=== PATIENT | male | born 1985 | race African-American/Black ===

== ENCOUNTER 2016-07-01 01:31 | Emergency (ER) | payer SELFPAY ==
[~2016-07-01 01:31] MED LIST: Naloxone 2 MG/2 ML Syringe ONE
[2016-07-01] MEDS ORDERED: Sodium Chloride 0.9% 10 ML Syringe FLUSH PRN (01:38)
[2016-07-01 01:54] VITALS: BP 130/91
--- NOTE | 2016-07-01 02:57 | EDM.PDOC ---
ED HPI ALTERED MENTAL STATUS - General Chief Complaint: Drug or Alcohol Abuse Stated Complaint: OVERDOSE Time Seen by Provider: 07/01/16 01:37 Source of Information: Reports: Other (friend) - History of Present Illness INITIAL COMMENTS - FREE TEXT/NARRATIVE: 30-year-old male brought in for altered mental status, agonal breathing, presumed heroin overdose. The friend that brought him in admits that he did inject heroin a short time prior and then "passed out and quit breathing normally. 2 Friends actually brought him in one driving and the other doing CPR. On arrival patient was quickly placed on a clot. Medical alert was called. When I arrived to the room he's lying on a clot agonal respirations unresponsive to voice or pain. No other information available at that time. - Related Data Allergies/ADRs: Allergies No Known Allergies Allergy (Verified 07/01/16 01:43) Home Meds: Home Meds . [No Known Home Meds] 07/01/16 [History] Past Medical History - Past Health History Medical/Surgical History: Denies Medical/Surgical History Psychiatric History: Reports: Addiction Social & Family History - Tobacco Use Smoking Status *Q: Current Every Day Smoker Years of Tobacco use: 10 Packs/Tins Daily: 0.3 - Recreational Drug Use Recreational Drug Use: Yes Recreational Drug Type: Reports: Heroin Recreational Drug Use Frequency: Socially ED ROS GENERAL - Review of Systems Review Of Systems: Unable To Obtain (do to altered mental status) - Physical Exam Exam: See Below General Appearance: obtunded, other (unresponsive to voice or painful stimuli) Eye Exam: bilateral eye: other (pupils are constricted bilaterally) Throat/Mouth: Normal inspection, Normal oropharynx Head Exam: atraumatic. No: facial swelling Neck: other (no JVD) Respiratory/Chest: other (agonal respirations). No: rhonchi, wheezing, stridor Cardiovascular: tachycardia, other (good radial pulses palpable) Neuro Exam (Abbreviated): unresponsive (unresponsive to voice or painful stimuli ) Extremities: other (he does have some track conley bilateral antecubital) Skin Exam: Other (dusky) Course - Vital Signs Last Recorded V/S: Last Vital Signs Temp 96.2 F 07/01/16 01:44 Pulse 127 H 07/01/16 01:44 Resp 0 L 07/01/16 01:44 BP 130/91 H 07/01/16 01:44 Pulse Ox 97 07/01/16 03:33 - Orders/Labs/Meds Orders: Active Orders 24 hr Category Date Time Status EKG 12 Lead [EKG Documentation Completion] [RC] STAT Care 07/01/16 01:45 Active Oxygen Therapy [RC] ASDIRECTED Care 07/01/16 01:38 Active Peripheral IV Care [RC] . DIRECTED Care 07/01/16 01:38 Active RT Aerosol Therapy [RC] ASDIRECTED Care 07/01/16 03:20 Active Chest 1V Frontal [CR] Stat Exams 07/01/16 01:39 Taken Peripheral IV Insertion Adult [OM.PC] Stat Oth 07/01/16 01:38 Ordered Labs: Laboratory Tests 07/01/16 07/01/16 Range/Units 01:41 01:41 WBC 12.53 H (4.23-9.07) K/mm3 RBC 5.27 (4.63-6.08) M/mm3 Hgb 15.3 (13.7-17.5) gm/L Hct 46.9 (40.1-51.0) % MCV 89.0 (79.0-92.2) fl MCH 29.0 (25.7-32.2) pg MCHC 32.6 (32.2-35.5) g/dl RDW Std Deviation 44.2 H (35.1-43.9) fL Plt Count 257 (163-337) K/mm3 MPV 10.5 (9.4-12.3) fl Neut % (Auto) 48.2 (34.0-67.9) % Lymph % (Auto) 44.4 (21.8-53.1) % [place] % (Auto) 5.9 (5.3-12.2) % Eos % (Auto) 0.6 L (0.8-7.0) Baso % (Auto) 0.6 (0.1-1.2) % Neut # 6.04 H (1.78-5.38) K/mm3 Lymph # 5.56 H (1.32-3.57) K/mm3 [place] # 0.74 (0.30-0.82) K/mm3 Eos # 0.07 (0.04-0.54) K/mm3 Baso # 0.08 (0.01-0.08) K/mm3 Manual Slide Review Abnormal smear Sodium 140 (136-145) mEq/L Potassium 3.8 (3.5-5.1) mEq/L Chloride 104 (98-107) mEq/L Carbon Dioxide 23 (21-32) mEq/L Anion Gap 16.8 H (5-15) BUN 18 (7-18) mg/dL Creatinine 1.3 (0.7-1.3) mg/dL Est Cr Clr Drug Dosing 82.33 mL/min Estimated GFR (MDRD) > 60 (>60) mL/min BUN/Creatinine Ratio 13.8 L (14-18) Glucose 135 H (74-106) mg/dL Calcium 8.8 (8.5-10.1) mg/dL Total Bilirubin 0.3 (0.2-1.0) mg/dL AST 78 H (15-37) U/L ALT 92 H (16-63) U/L Alkaline Phosphatase 62 (46-116) U/L Total Protein 7.5 (6.4-8.2) g/dl Albumin 4.1 (3.4-5.0) g/dl Globulin 3.4 gm/dL Albumin/Globulin Ratio 1.2 (1-2) Ethyl Alcohol 0.06 (0.00) gm% Meds: Medications Discontinued Medications Generic Name Dose Route Start Last Admin Trade Name Freq PRN Reason Stop Dose Admin Albuterol 2.5 mg 07/01/16 03:20 07/01/16 03:31 Proventil Neb Soln NEB 07/01/16 03:21 2.5 mg ONETIME ONE Administration Naloxone HCl 1 mg 07/01/16 01:38 Narcan IVPUSH 07/01/16 01:39 ONETIME ONE Naloxone HCl 1 mg 07/01/16 01:58 Narcan IVPUSH 07/01/16 01:59 ONETIME ONE Naloxone HCl 2 mg 07/01/16 02:03 07/01/16 01:32 Narcan IVPUSH 07/01/16 02:04 2 mg ONETIME ONE Administration Naloxone HCl 2 mg 07/01/16 02:07 07/01/16 01:33 Narcan IVPUSH 07/01/16 02:08 2 mg ONETIME ONE Administration Sodium Chloride 10 ml 07/01/16 01:38 Saline Flush FLUSH ASDIRECTED PRN Keep Vein Open - Re-Assessments/Exams Free Text/Narrative Re-Assessment/Exam: 07/01/16 02:15. Patient came in with agonal respirations. A friend brought him in by private vehicle. He was rapidly placed on a cot, medical alert was called , ventilations were assisted with bag valve mask with O2 at 15 L. IV access was rapidly obtained and he was given 2 mg of Narcan IV. with that his respiratory rate picked up very rapidly to where he was breathing on his own, moving air well with sats at 100% with continued oxygen at 15 L. We did not get an oximetry reading on him initially when he first arrived but with his alternated mental status, slow agonal respirations he was hypoxic on arrival. 3:20 . Patient has been gradually titrated down on his oxygen flow rate and was maintaining sats were 91 92% range then dropped short time ago down to 87-88% room air. We will give him a neb treatment. He states he does have history of asthma. 3:38He currently is not wheezing, moving air well, very occasional nonproductive cough, does not feel short of breath. He feels up to going home. sats are now running in the 98-99% range. A friend or 2 will be with him the remainder of the night. Discharge instructions as documented. critical care time 45 minutes. This includes initial resuscitation, ordering of appropriate tests, monitoring of condition until stable and then continued monitoring of condition until ready for discharge. interpretation of labs. Chart documentation. Departure - Departure Time of Disposition: 20:00 Disposition: Home, Self-Care 01 Condition: fair Clinical Impression: Heroin overdose Qualifiers: Encounter type: initial encounter Injury intent: accidental or unintentional Qualified Code(s): T40.1X1A - Poisoning by heroin, accidental (unintentional), initial encounter Instructions: Opioid Overdose Referrals: PCP,None [Primary Care Provider] - Additional Instructions: you were barely breathing when brought to the ED this morning by her friend. You could have easily from this. Contact [facility] addiction counselor or [facility] services if you are interested in information or help to stop using heroin. Followup clinic as needed return to ED as needed - My Orders Last 24 Hours: My Active Orders 07/01/16 01:38 Oxygen Therapy [RC] ASDIRECTED Peripheral IV Care [RC] . DIRECTED Peripheral IV Insertion Adult [OM.PC] Stat 07/01/16 01:39 Chest 1V Frontal [CR] Stat 07/01/16 01:45 EKG 12 Lead [EKG Documentation Completion] [RC] STAT 07/01/16 03:20 RT Aerosol Therapy [RC] ASDIRECTED - Assessment/Plan Last 24 Hours: My Active Orders 07/01/16 01:38 Oxygen Therapy [RC] ASDIRECTED Peripheral IV Care [RC] . DIRECTED Peripheral IV Insertion Adult [OM.PC] Stat 07/01/16 01:39 Chest 1V Frontal [CR] Stat 07/01/16 01:45 EKG 12 Lead [EKG Documentation Completion] [RC] STAT 07/01/16 03:20 RT Aerosol Therapy [RC] ASDIRECTED
[2016-07-01] MEDS ORDERED: Albuterol 0.083% 2.5 MG/3 ML Neb Soln NEB ONE (03:20)
--- NOTE | 2016-07-01 07:10 | CR ---
Chest: Supine view of the chest was obtained. Comparison: No previous study. Hazy increased density within the right chest as compared to the left side is seen. Mild bronchitis is possible. Lungs otherwise are clear. Heart size and mediastinum are normal. Bony structures are grossly intact. Impression: 1. Haziness to the right chest possibly due to bronchitis. Please correlate if patient has infectious symptoms. 2. Portable chest x-ray is otherwise unremarkable. Diagnostic code #3
== END 2016-07-01 04:00 | disposition home or self-care (01) ==
LOC: JD.ED 01:31 → SUPCPDRO 01:31 → JD.ED 04:00
DX: T40.1X1A Poisoning by heroin, accidental (unintentional), initial encounter (principal); J45.909 Unspecified asthma, uncomplicated; F17.200 Nicotine dependence, unspecified, uncomplicated
CPT/HCPCS: 36415; 71010; 80053; 85025; 93005; 94664; 99285; G0480; J2310; 99291

== ENCOUNTER 2016-09-30 00:01 | Emergency (ER) | payer BC ==
[2016-09-30 00:25] VITALS: BP 122/78
[2016-09-30] MEDS ORDERED: Potassium Chloride 20 MEQ Tab.ER PO ONE (01:39)
--- NOTE | 2016-09-30 03:27 | EDM.PDOC ---
ED HPI GENERAL MEDICAL PROBLEM - General Chief Complaint: Drug or Alcohol Abuse Stated Complaint: [facility] Time Seen by Provider: 09/30/16 00:05 - History of Present Illness INITIAL COMMENTS - FREE TEXT/NARRATIVE: 31-year-old male brought to the emergency room by EMS after an apparent heroin overdose. EMS was activated after the patient was found unresponsive. When EMS arise. Substantially decreased respiratory drive. He was given a milligram of Narcan and awoke and quickly was alert and oriented 3. The patient had a similar episode where his friend brought him to the emergency department 3 months ago and he required 4 mg of Narcan. Patient states he does not use heroin on a regular basis and hadn't used for a couple weeks prior to tonight's episode. Patient denies other medical problems - Related Data Allergies Allergy/AdvReac Type Severity Reaction Status Date / Time No Known Allergies Allergy Verified 07/01/16 01:43 Home Meds: Home Meds . [No Known Home Meds] 07/01/16 [History] Past Medical History - Past Health History Medical/Surgical History: Denies Medical/Surgical History Psychiatric History: Reports: Addiction Social & Family History - Tobacco Use Smoking Status *Q: Never Smoker Years of Tobacco use: 10 Packs/Tins Daily: 0.3 - Recreational Drug Use Recreational Drug Use: Yes Drug Use in Last 12 Months: Yes Recreational Drug Type: Reports: Heroin Recreational Drug Use Frequency: Socially ED ROS GENERAL - Review of Systems Review Of Systems: See Below Constitutional: Reports: No Symptoms HEENT: Reports: No Symptoms Respiratory: Reports: No Symptoms Cardiovascular: Reports: No Symptoms Endocrine: Reports: No Symptoms GI/Abdominal: Reports: No Symptoms : Reports: No Symptoms Neurological: Reports: No Symptoms Psychiatric: Denies: Anxiety, Depression, Hallucinations, Homicidal Ideation, Mood Lability, Suicidal Ideation ED EXAM, GENERAL - Physical Exam Exam: See Below Exam Limited By: No Limitations General Appearance: Alert, No Apparent Distress Eye Exam: Bilateral Eye: Normal Inspection Ears: Normal External Exam, Normal Canal, Hearing Grossly Normal, Normal TMs Nose: Normal Inspection, Normal Mucosa, No Blood Throat/Mouth: Normal Inspection, Normal Lips, Normal Teeth, Normal Gums, Normal Oropharynx, Normal Voice, No Airway Compromise Head: Atraumatic, Normocephalic Neck: Normal Inspection, Supple, Non-Tender, Full Range of Motion Respiratory/Chest: No Respiratory Distress, Lungs Clear, Normal Breath Sounds Cardiovascular: Normal Peripheral Pulses, Regular Rate, Rhythm, No Edema GI/Abdominal: Normal Bowel Sounds, Soft, Non-Tender, No Organomegaly, No Distention, No Abnormal Bruit, No Mass Back Exam: Normal Inspection. No: CVA Tenderness (L), CVA Tenderness (R) Extremities: Normal Inspection, Normal Range of Motion, Non-Tender, No Pedal Edema Neurological: Alert, Oriented, CN II-XII Intact, Normal Cognition, No Motor/ Sensory Deficits Psychiatric: Normal Affect, Normal Mood EKG INTERPRETATION EKG Date: 09/30/16 Rhythm: NSR [place]: Normal P-Wave: Present QRS: Normal ST-T: Normal QT: Normal EKG Interpretation Comments: Normal EKG Course - Vital Signs Last Recorded V/S: Last Vital Signs Temp 36.6 C 09/30/16 00:23 Pulse 74 09/30/16 00:23 Resp 20 09/30/16 00:23 BP 122/78 09/30/16 00:23 Pulse Ox 100 09/30/16 00:23 - Orders/Labs/Meds Orders: Active Orders 24 hr Category Date Time Status EKG Documentation Completion [RC] STAT Care 09/30/16 00:20 Active Labs: Laboratory Tests 09/30/16 09/30/16 09/30/16 Range/Units 00:35 00:35 03:07 WBC 10.01 H (4.23-9.07) K/mm3 RBC 5.25 (4.63-6.08) M/mm3 Hgb 15.6 (13.7-17.5) gm/L Hct 45.8 (40.1-51.0) % MCV 87.2 (79.0-92.2) fl MCH 29.7 (25.7-32.2) pg MCHC 34.1 (32.2-35.5) g/dl RDW Std Deviation 39.3 (35.1-43.9) fL Plt Count 227 (163-337) K/mm3 MPV 11.1 (9.4-12.3) fl Neutrophils % (Manual) 63 H (40-60) % Band Neutrophils % 0 (0-10) % Lymphocytes % (Manual) 26 (20-40) % Atypical Lymphs % 2 % Monocytes % (Manual) 8 (2-10) % Eosinophils % (Manual) 1 (0.8-7.0) % Basophils % (Manual) 0 L (0.2-1.2) Platelet Estimate Adequate Plt Morphology Comment Normal RBC Morph Comment Normal Sodium 141 (136-145) mEq/L Potassium 3.2 L (3.5-5.1) mEq/L Chloride 105 (98-107) mEq/L Carbon Dioxide 26 (21-32) mEq/L Anion Gap 13.2 (5-15) BUN 22 H (7-18) mg/dL Creatinine 1.8 H (0.7-1.3) mg/dL Est Cr Clr Drug Dosing 60.83 mL/min Estimated GFR (MDRD) 53 (>60) mL/min BUN/Creatinine Ratio 12.2 L (14-18) Glucose 118 H (74-106) mg/dL Calcium 9.0 (8.5-10.1) mg/dL Total Bilirubin 0.4 (0.2-1.0) mg/dL AST 24 (15-37) U/L ALT 69 H (16-63) U/L Alkaline Phosphatase 63 (46-116) U/L Total Protein 7.5 (6.4-8.2) g/dl Albumin 4.0 (3.4-5.0) g/dl Globulin 3.5 gm/dL Albumin/Globulin Ratio 1.1 (1-2) Urine Color (Yellow) Urine Appearance (Clear) Urine pH (5.0-8.0) Ur Specific [place] (1.005-1.030) Urine Protein (Negative) Urine Glucose (UA) (Negative) Urine Ketones (Negative) Urine Occult Blood (Negative) Urine Nitrite (Negative) Urine Bilirubin (Negative) Urine Urobilinogen (0.2-1.0) Ur Leukocyte Esterase (Negative) Urine RBC (0-5) /hpf Urine WBC (0-5) /hpf Ur Epithelial Cells (0-5) /hpf Calcium Oxalate Crystal (NONE) Urine Bacteria (FEW) /hpf Hyaline Casts (0-5) /lpf Urine Mucus (FEW) /hpf Urine Opiates Screen Presumptive positive H (NEGATIVE) Ur Buprenorphine Scrn Negative (NEGATIVE) Ur Oxycodone Screen Negative (NEGATIVE) Urine Methadone Screen Negative (NEGATIVE) Ur Propoxyphene Screen Negative (NEGATIVE) Ur Barbiturates Screen Negative (NEGATIVE) Ur Tricyclics Screen Negative (NEGATIVE) Ur Phencyclidine Scrn Negative (NEGATIVE) Ur Amphetamine Screen Negative (NEGATIVE) U Methamphetamines Scrn Negative (NEGATIVE) U Benzodiazepines Scrn Negative (NEGATIVE) U Cocaine Metab Screen Presumptive positive H (NEGATIVE) U Marijuana (THC) Screen Presumptive positive H (NEGATIVE) Ethyl Alcohol 0.00 (0.00) gm% 09/30/16 Range/Units 03:07 WBC (4.23-9.07) K/mm3 RBC (4.63-6.08) M/mm3 Hgb (13.7-17.5) gm/L Hct (40.1-51.0) % MCV (79.0-92.2) fl MCH (25.7-32.2) pg MCHC (32.2-35.5) g/dl RDW Std Deviation (35.1-43.9) fL Plt Count (163-337) K/mm3 MPV (9.4-12.3) fl Neutrophils % (Manual) (40-60) % Band Neutrophils % (0-10) % Lymphocytes % (Manual) (20-40) % Atypical Lymphs % % Monocytes % (Manual) (2-10) % Eosinophils % (Manual) (0.8-7.0) % Basophils % (Manual) (0.2-1.2) Platelet Estimate Plt Morphology Comment RBC Morph Comment Sodium (136-145) mEq/L Potassium (3.5-5.1) mEq/L Chloride (98-107) mEq/L Carbon Dioxide (21-32) mEq/L Anion Gap (5-15) BUN (7-18) mg/dL Creatinine (0.7-1.3) mg/dL Est Cr Clr Drug Dosing mL/min Estimated GFR (MDRD) (>60) mL/min BUN/Creatinine Ratio (14-18) Glucose (74-106) mg/dL Calcium (8.5-10.1) mg/dL Total Bilirubin (0.2-1.0) mg/dL AST (15-37) U/L ALT (16-63) U/L Alkaline Phosphatase (46-116) U/L Total Protein (6.4-8.2) g/dl Albumin (3.4-5.0) g/dl Globulin gm/dL Albumin/Globulin Ratio (1-2) Urine Color Yellow (Yellow) Urine Appearance Clear (Clear) Urine pH 6.0 (5.0-8.0) Ur Specific [place] > or = 1.030 (1.005-1.030) Urine Protein 1+ H (Negative) Urine Glucose (UA) Negative (Negative) Urine Ketones Trace H (Negative) Urine Occult Blood Negative (Negative) Urine Nitrite Negative (Negative) Urine Bilirubin 1+ H (Negative) Urine Urobilinogen 0.2 (0.2-1.0) Ur Leukocyte Esterase Negative (Negative) Urine RBC 0-5 (0-5) /hpf Urine WBC 0-5 (0-5) /hpf Ur Epithelial Cells 0-5 (0-5) /hpf Calcium Oxalate Crystal Few H (NONE) Urine Bacteria Not seen (FEW) /hpf Hyaline Casts 0-5 (0-5) /lpf Urine Mucus Many H (FEW) /hpf Urine Opiates Screen (NEGATIVE) Ur Buprenorphine Scrn (NEGATIVE) Ur Oxycodone Screen (NEGATIVE) Urine Methadone Screen (NEGATIVE) Ur Propoxyphene Screen (NEGATIVE) Ur Barbiturates Screen (NEGATIVE) Ur Tricyclics Screen (NEGATIVE) Ur Phencyclidine Scrn (NEGATIVE) Ur Amphetamine Screen (NEGATIVE) U Methamphetamines Scrn (NEGATIVE) U Benzodiazepines Scrn (NEGATIVE) U Cocaine Metab Screen (NEGATIVE) U Marijuana (THC) Screen (NEGATIVE) Ethyl Alcohol (0.00) gm% Meds: Medications Discontinued Medications Generic Name Dose Route Start Last Admin Trade Name Freq PRN Reason Stop Dose Admin Potassium Chloride 40 meq 09/30/16 01:39 09/30/16 01:48 Klor-Con M20 PO 09/30/16 01:40 40 meq ONETIME ONE Administration - Re-Assessments/Exams Free Text/Narrative Re-Assessment/Exam: 09/30/16 03:35 Laboratory evaluation thus far unrevealing urine toxicology pending blood alcohol negative the patient has been observed for 3 hours now has been fairly stable his blood pressure has dropped with systolics went 80s or 90s however his pulse was not elevated and he was not symptomatic with this. Anticipate discharge soon. 09/30/16 03:54 Urine toxicology is positive for opioids and cocaine and marijuana Departure - Departure Time of Disposition: 03:36 Disposition: Home, Self-Care 01 Clinical Impression: Heroin overdose - Discharge Information Referrals: PCP,None [Primary Care Provider] - Additional Instructions: Return to the emergency room with any questions or problems. I strongly suggest no longer use drugs like this, it can be fatal and it looks like you've had a couple close calls. It is strongly suggested that you follow-up with drug addiction counseling of your choice. Or [facility] [phone] - My Orders Last 24 Hours: My Active Orders 09/30/16 00:20 EKG Documentation Completion [RC] STAT - Assessment/Plan Last 24 Hours: My Active Orders 09/30/16 00:20 EKG Documentation Completion [RC] STAT
== END 2016-09-30 04:06 | disposition home or self-care (01) ==
LOC: JD.ED 00:01 → SUPCPDRO 00:01 → JD.ED 04:06
DX: T40.1X1A Poisoning by heroin, accidental (unintentional), initial encounter (principal)
CPT/HCPCS: 36415; 80053; 80306; 81001; 85025; 93005; 99285; A9270; G0480; 99283

== ENCOUNTER 2016-12-09 21:19 | Emergency (ER) | payer BC ==
[2016-12-09 21:45] VITALS: BP 107/65
--- NOTE | 2016-12-09 22:20 | EDM.PDOC ---
ED HPI GENERAL MEDICAL PROBLEM - General Chief Complaint: Head Injury Stated Complaint: HEAD INJURY 1 WEEK AGO/HEADACHE/NUMBNESS Time Seen by Provider: 12/09/16 21:50 Source of Information: Reports: Patient History Limitations: Reports: No Limitations - History of Present Illness INITIAL COMMENTS - FREE TEXT/NARRATIVE: The patient presents with numbness to the back of his head. The patient was working and he stood up and hit the back of his head on a metal bar. He had no LOC. He was stunned when it happened. This happened 1 week ago. He has no headaches, nausea, vomiting, numbness or weakness to his arms or legs. He does have he numbness to the back of his head. He has no vision changes. He feels good. Onset: Sudden Duration: Week(s): (1) Location: Reports: Head Quality: Reports: Other (Numbness) Severity: Moderate Improves with: Reports: None Worsens with: Reports: None Context: Reports: Activity (Hit his head at work) Associated Symptoms: Reports: No Other Symptoms - Related Data Allergies Allergy/AdvReac Type Severity Reaction Status Date / Time No Known Allergies Allergy Verified 07/01/16 01:43 Home Meds: Home Meds . [No Known Home Meds] 07/01/16 [History] Past Medical History - Past Health History Medical/Surgical History: Denies Medical/Surgical History Psychiatric History: Reports: Addiction Social & Family History - Tobacco Use Smoking Status *Q: Current Every Day Smoker Years of Tobacco use: 10 Packs/Tins Daily: 0.5 - Caffeine Use Caffeine Use: Reports: Coffee, Energy Drinks - Recreational Drug Use Recreational Drug Use: Yes Drug Use in Last 12 Months: Yes Recreational Drug Type: Reports: Fentanyl, Marijuana/Hashish Recreational Drug Use Frequency: Socially ED ROS GENERAL - Review of Systems Review Of Systems: See Below Constitutional: Reports: No Symptoms HEENT: Reports: Other (Numbness to the back of his head) Respiratory: Reports: No Symptoms Cardiovascular: Reports: No Symptoms Endocrine: Reports: No Symptoms GI/Abdominal: Reports: No Symptoms : Reports: No Symptoms Musculoskeletal: Reports: No Symptoms Neurological: Reports: Numbness (to the back of his head) ED EXAM, HEAD INJURY - Physical Exam Exam: See Below Exam Limited By: No Limitations General Appearance: Alert, No Apparent Distress Head: Other (Numbness to the left ocipital region of his head) Ears: Normal External Exam Nose: Normal Inspection Neck: Non-Tender, Normal Alignment, Normal Inspection Respiratory: No Respiratory Distress, Lungs Clear, Normal Breath Sounds Cardiovascular: Regular Rate, Rhythm, No Edema, No Murmur GI/Abdominal Exam: Soft, Non-Tender, No Organomegaly, No Mass Back Exam: Normal Inspection Extremities: Normal Inspection Neurologic: No Motor/Sensory Deficits, Alert, Oriented x 3 Course - Vital Signs Last Recorded V/S: Last Vital Signs Temp 97.8 F 12/09/16 21:44 Pulse 64 12/09/16 21:44 Resp 20 12/09/16 21:44 BP 107/65 12/09/16 21:44 Pulse Ox 98 12/09/16 21:44 - Re-Assessments/Exams Free Text/Narrative Re-Assessment/Exam: 12/09/16 22:18 It appears he traumatized a nerve in the back of his head. I do not suspect a brain injury. I will discharge him home. Departure - Departure Time of Disposition: 22:20 Disposition: Home, Self-Care 01 Condition: Good Clinical Impression: Numbness, Peripheral nerve contusion Head injury Qualifiers: Encounter type: initial encounter Qualified Code(s): S09.90XA - Unspecified injury of head, initial encounter - Discharge Information Referrals: PCP,None [Primary Care Provider] - Marsha Mike PA [Physician Supervisor [employer]] - 2 Weeks Forms: ED Department Discharge Additional Instructions: The nerve in your head was contused. The feeling should come back in the next few weeks. If you do not feel an improvement in 2 weeks follow up with Marsha Mike.
== END 2016-12-09 22:35 | disposition home or self-care (01) ==
LOC: JD.ED 21:19
DX: S09.90XA Unspecified injury of head, initial encounter (principal); T14.8 Other injury of unspecified body region; F17.210 Nicotine dependence, cigarettes, uncomplicated; W22.8XXA Striking against or struck by other objects, initial encounter
CPT/HCPCS: 99283